=== PATIENT | female | born 1985 | race Asian ===

== ENCOUNTER 2017-06-25 15:02 | Emergency (ER) | payer OTHER ==
[2017-06-25] MEDS ORDERED: Ondansetron 4 MG Tab.DIS PO ONE (15:41)
--- NOTE | 2017-06-25 16:17 | EDM.PDOC ---
ED HPI GENERAL MEDICAL PROBLEM - General Chief Complaint: Gastrointestinal Problem Stated Complaint: VOMITTING/NAUSEA Time Seen by Provider: 06/25/17 15:47 Source of Information: Reports: Patient History Limitations: Reports: No Limitations - History of Present Illness INITIAL COMMENTS - FREE TEXT/NARRATIVE: Patient is a 31-year-old female who presents to the ED complaining of nausea and vomiting that started this morning. Patient does have a history of depression, anxiety, IBS. States last night attempted to break up with her boyfriend of 3 years. States she came to conclusion that they cannot be together. During the conversation the boyfriend stated he did not want to break up and thus unclear at this point if they are broken up or not. She is upset with admission to the ED. States she was diagnosed with irritable bowel syndrome approximate 2 years ago. This has been an ongoing issue. She believes the nausea she is currently experiencing is associated with it as well. She's had intermittent loose and hard stools with intermittent nausea and vomiting over the past 2 years. She has been evaluated by GI specialist Dr. Snow with EGD and colonoscopy on 2 separate occasions. In addition she is on a anti- depressant/anti-anxiety medication by a behavioral intervention specialist provider and Nik. She is very sad and tearful during conversation. There are no safety concerns with her ex/current boyfriend. She states he is a good man. She works at the [employer] here in [place]. She has a poor support system and states her family is in [facility]. She denies any suicidal ideation, suicide plan, homicidal ideations, hallucinations, or any additional complaints. - Related Data Allergies Allergy/AdvReac Type Severity Reaction Status Date / Time No Known Allergies Allergy Verified 06/25/17 15:11 Home Meds: Home Meds Ondansetron [Zofran ODT] 4 mg PO Q6H PRN #10 tab.dis 06/25/17 [Rx] Sertraline HCl [Zoloft] 150 mg PO DAILY 06/25/17 [History] Past Medical History Psychiatric History: Reports: Anxiety, Depression Social & Family History - Family History Family Medical History: Noncontributory - Tobacco Use Smoking Status *Q: Never Smoker - Caffeine Use Caffeine Use: Reports: Coffee - Recreational Drug Use Recreational Drug Use: No ED ROS GENERAL - Review of Systems Review Of Systems: See Below Constitutional: Reports: Malaise, Decreased Appetite. Denies: Fever, Chills HEENT: Reports: No Symptoms Respiratory: Reports: No Symptoms Cardiovascular: Reports: No Symptoms GI/Abdominal: Reports: Diarrhea, Decreased Appetite, Nausea, Vomiting. Denies: Abdominal Pain, Black Stool, Bloody Stool, Hematemesis, Melena : Reports: No Symptoms Musculoskeletal: Reports: No Symptoms Neurological: Reports: No Symptoms Psychiatric: Reports: Depression. Denies: Hallucinations, Homicidal Ideation, Mood Lability, Suicidal Ideation ED EXAM, GI/ABD - Physical Exam Exam: See Below Exam Limited By: No Limitations General Appearance: Alert, WD/WN, Other (Tearful) Ears: Hearing Grossly Normal Nose: Normal Inspection Throat/Mouth: Normal Voice, No Airway Compromise Neck: Normal Inspection, Supple Respiratory/Chest: No Respiratory Distress, No Accessory Muscle Use Cardiovascular: Normal Peripheral Pulses, Regular Rate, Rhythm Neurological: Alert, Oriented, CN II-XII Intact, Normal Cognition Psychiatric: Normal Affect, Depressed Mood, Tearful Skin Exam: Warm, Dry, Intact, Normal Color Course - Vital Signs Last Recorded V/S: Last Vital Signs Temp 98.6 F 06/25/17 15:08 Pulse 77 06/25/17 15:08 Resp 18 06/25/17 15:08 BP 144/96 H 06/25/17 15:08 Pulse Ox 100 06/25/17 15:08 - Orders/Labs/Meds Meds: Medications Discontinued Medications Generic Name Dose Route Start Last Admin Trade Name Freq PRN Reason Stop Dose Admin Ondansetron HCl 4 mg 06/25/17 15:41 06/25/17 16:06 Zofran Odt PO 06/25/17 15:42 4 mg ONETIME ONE Administration - Re-Assessments/Exams Free Text/Narrative Re-Assessment/Exam: Patient is experiencing nausea and vomiting. No other complaints except for feeling depressed after becoming upset with attempting to break up with her current boyfriend. Zofran has been ordered. She does see Dr. Rachele Brewer and also a psych provider in [place]. She has no suicidal ideations, suicidal plan, or homicidal ideations in place. She is safe to go home. We'll discharge home with instructions as documented. I will prescribe Zofran for intermittent nausea. Departure - Departure Time of Disposition: 16:19 Disposition: Home, Self-Care 01 Condition: Good Clinical Impression: Depression with anxiety Nausea & vomiting Qualifiers: Vomiting type: unspecified Vomiting Intractability: non-intractable Qualified Code(s): R11.2 - Nausea with vomiting, unspecified Irritable bowel syndrome Qualifiers: Irritable bowel syndrome type: with both diarrhea and constipation Qualified Code(s): K58.2 - Mixed irritable bowel syndrome - Discharge Information Prescriptions: Ondansetron [Zofran ODT] 4 mg PO Q6H PRN #10 tab.dis PRN Reason: Nausea/Vomiting Instructions: Nausea and Vomiting, Adult, [id number] Referrals: Chioma Brewer, MARKETING PROFESSIONAL [Primary Care Provider] - Forms: ED Department Discharge, ED Return to Work/School Form Additional Instructions: As discussed do believe the symptoms you are currently experiencing are related to your anxiety, depression, and irritable bowel syndrome. I have provided a prescription for Zofran to take as needed for nausea and vomiting. Suggest pushing the fluids. Eat a bland diet refraining from any foods that cause aggravation to your stomach. Follow-up with PCP in the next week for reevaluation. Call and make an appointment with your psych provider for continued counseling. It is normal to grieve with your current situation. The issue is when the grieving is prolonged affecting your everyday living. Thus suggest getting out doing things you enjoy doing. Exercise frequently. Eat a balanced diet. Refrain from alcohol since this is a depressant. Speak with close friends during this time. Do not isolate your self during this time. If you should have any new or worsening symptoms please return to the ED.
== END 2017-06-25 16:33 | disposition home or self-care (01) ==
LOC: JD.ED 15:02
DX: K58.2 Mixed irritable bowel syndrome (principal); F41.8 Other specified anxiety disorders; Z79.899 Other long term (current) drug therapy
CPT/HCPCS: 99283; A9270